=== PATIENT | female | born 1970 | race African-American/Black ===

== ENCOUNTER 2016-07-25 16:32 | Emergency (ER) | payer MEDICAID, OTHER ==
[~2016-07-25] VITALS: Ht 149.9 cm; Wt 59.4 kg
[2016-07-25 17:03] VITALS: BP 138/89
--- NOTE | 2016-07-25 19:20 | NUR ---
PT TAKEN TO BED 5
--- NOTE | 2016-07-25 19:30 | NUR ---
46Y F BIB SPOUSE C/O OF LOW BACK PAIN FOR 5 MOS NOW. PAIN 6/10 IN SCALE. DENIES N/V/D.
--- NOTE | 2016-07-25 19:55 | NUR ---
Dr. Wade evaluating patient at bedside.
[2016-07-25 20:50] VITALS: BP 133/73
--- NOTE | 2016-07-25 20:50 | NUR ---
Patient discharged with v/s stable. Written and verbal after care instructions given and explained. Patient verbalized understanding. Ambulatory with steady gait. All questions addressed prior to discharge. Advised to follow up with PMD.
== END 2016-07-25 20:50 | disposition home or self-care (01) ==
LOC: MED 16:32
DX: M54.5 Low back pain (principal); R03.0 Elevated blood-pressure reading, without diagnosis of hypertension
CPT/HCPCS: 81025; 99283